=== PATIENT | female | born 1970 | race Caucasian/White ===

== ENCOUNTER 2020-10-12 12:24 | Observation (INO) | payer OTHER, SELFPAY ==
[2020-10-12 12:58] LABS: #Basophils 0.1 thou/uL (0.0-0.2); #Lymphocytes 1.3 thou/uL (1.20-3.40); #Monocytes 0.8 thou/uL (0.11-0.59); #Neutrophils 10.9 thou/uL (1.40-6.50); %Basophils 0.5 % (0.0-1.0); %Eosinophils 0.2 % (0.0-10.0); %Lymphocytes 10.2 % (21.0-51.0); %Monocytes 6.4 % (0.0-10.0); %Neutrophils 82.8 % (42.0-75.0); Hemoglobin 16.2 g/dL (12.0-16.0); Mean Corpuscular HGB CONC 33.9 g/dL (32.0-36.0); Mean Corpuscular Hemoglobin 33.6 pg (27.0-31.0); Mean Corpuscular Volume 99.2 fL (78.0-98.0); Mean Platelet Volume 7.2 fL (7.4-10.4); Platelet Count 324 thou/uL (130-400); RBC Distribution Width 11.5 % (11.5-14.5); Red Blood Cell (RBC) Count 4.82 mill/uL (4.20-5.40); White Blood Cell (WBC) Count 13.1 thou/uL (4.8-10.8)
[2020-10-12 13:12] LABS: ALT (SGPT) 19 U/L (8-55); AST (SGOT) 21 U/L (5-34); Albumin 4.5 g/dL (3.5-5.0); Alkaline Phosphatase 85 U/L (40-110); Anion Gap 17 mmol/L (10-20); BUN (Urea Nitrogen) 9 mg/dL (9.8-20.1); Bilirubin, Total 0.7 mg/dL (0.2-1.2); Calc. Creatinine Clearance 0 mL/min (70-130); Calcium 9.7 mg/dL (7.8-10.44); Carbon Dioxide 23 mmol/L (22-29); Chloride 101 mmol/L (98-107); Globulin 3.6 g/dL (2.4-3.5); Glucose 113 mg/dL (70-105); Lipase 5 U/L (8-78); Potassium 4.2 mmol/L (3.5-5.1); Protein, Total 8.1 g/dL (6.0-8.3); Sodium 137 mmol/L (136-145)
[2020-10-12] MEDS ORDERED: Morphine 4 MG/ML VIAL ONE ×2 (14:07→15:33)
[2020-10-12] MEDS ORDERED: Ondansetron PF 4 MG/2 ML Vial ONE ×2 (14:07→17:40)
[2020-10-12] MEDS ORDERED: Iopamidol-370 76% 500 ML 1 ML ONE (14:46)
[2020-10-12 15:16] LABS: BHCG - Serum Negative (NEGATIVE); Pregs Control Background? CLEAR/WHITE (CLR/WHITE); Pregs Control Bar Appear? YES (CONTROL BAR)
[2020-10-12] MEDS ORDERED: Ketorolac Tromethamine 30 MG/ML VIAL ONE (16:39)
[2020-10-12] MEDS ORDERED: Glycopyrrolate 0.2 MG/ML 5 ML SYRINGE SLOW IVP SCH (16:45)
[2020-10-12 16:58] LABS: Bilirubin Negative (Negative); Blood, Urine Negative (Negative); Clarity Clear (Clear); Glucose, Urine (Dipstick) Normal (Negative); Ketone, Urine 20 mg/dL (Negative); Leukocyte Negative Leu/uL (Negative); Nitrite Negative (Negative); Protein, Urine (Dipstick) Negative (Neg-Trace); Specific Gravity, Urine 1.015 (1.002-1.036); Urobilinogen Normal mg/dL (Less than 2); pH, Urine 6.5 (5.0-9.0)
[2020-10-12] MEDS ORDERED: Morphine 4 MG/ML VIAL SLOW IVP PRN (22:05)
[2020-10-12] MEDS ORDERED: Mag-Al 1200 mg/1200 mg/30 ML UDCUP PO PRN (22:06)
[2020-10-12] MEDS ORDERED: hydrALAZINE 20 MG/ML VIAL SLOW IVP PRN (22:06)
[2020-10-12] MEDS ORDERED: Promethazine HCl 25 MG/ML VIAL IM PRN (22:06)
[2020-10-12] MEDS ORDERED: Dextrose 5% in Water 1,000 ML IV PRN (22:06)
[2020-10-12] MEDS ORDERED: Calcium Carbonate 500 MG ChewTAB PO PRN (22:06)
[2020-10-12] MEDS ORDERED: Fentanyl 100 MCG/2 ML VIAL SLOW IVP PRN (22:06)
[2020-10-12] MEDS ORDERED: Ondansetron PF 4 MG/2 ML Vial IVP PRN ×2 (22:06→22:15)
[2020-10-12] MEDS ORDERED: Dextrose 50% Abboject 50 ML SYRINGE SLOW IVP PRN (22:06)
[2020-10-12] MEDS ORDERED: traMADol HCl 50 MG TAB PO PRN ×2 (22:06)
[2020-10-12] MEDS ORDERED: Ondansetron ODT 4 MG TAB SL PRN (22:15)
[2020-10-12] MEDS ORDERED: Famotidine/PF 20 mg/2ml Vial SLOW IVP SCH (22:15)
[2020-10-12] MEDS ORDERED: Enoxaparin Sodium 40 MG/0.4 ML SYRINGE SC SCH (22:15)
[2020-10-12] MEDS: metroNIDAZOLE 500 MG in Premix Bag 1 BAG IVPB SCH (22:33)
[2020-10-12] MEDS: Sodium Chloride 0.9% 1,000 ML IV SCH (22:36)
[2020-10-12] MEDS: D5 1/2 NS w/20 mEq KCL 1,000 ML IV SCH (22:36)
[2020-10-12] MEDS: Fentanyl 100 MCG/2 ML VIAL SLOW IVP PRN (22:38)
[2020-10-12] MEDS ORDERED: metroNIDAZOLE 500 MG in Premix Bag 1 BAG IVPB SCH (23:59)
[2020-10-13] MEDS: Fentanyl 100 MCG/2 ML VIAL SLOW IVP PRN (04:33)
[2020-10-13] MEDS: metroNIDAZOLE 500 MG in Premix Bag 1 BAG IVPB SCH ×2 (05:02→13:10)
[2020-10-13] MEDS: Sodium Chloride 0.9% 1,000 ML IV SCH (05:14)
[2020-10-13] MEDS: D5 1/2 NS w/20 mEq KCL 1,000 ML IV SCH ×3 (05:44→15:10)
[2020-10-13 06:32] LABS: #Eosinphils 0.2 thou/uL (0.0-0.7); #Lymphocytes 1.7 thou/uL (1.20-3.40); #Neutrophils 6.1 thou/uL (1.40-6.50); %Basophils 0.4 % (0.0-1.0); %Eosinophils 1.8 % (0.0-10.0); %Lymphocytes 18.7 % (21.0-51.0); %Monocytes 11.3 % (0.0-10.0); %Neutrophils 67.8 % (42.0-75.0); Hemoglobin 14.5 g/dL (12.0-16.0); Mean Corpuscular HGB CONC 33.9 g/dL (32.0-36.0); Mean Corpuscular Hemoglobin 34.2 pg (27.0-31.0); Mean Platelet Volume 7.5 fL (7.4-10.4); Platelet Count 258 thou/uL (130-400); RBC Distribution Width 11.9 % (11.5-14.5); Red Blood Cell (RBC) Count 4.23 mill/uL (4.20-5.40); White Blood Cell (WBC) Count 9.1 thou/uL (4.8-10.8)
[2020-10-13 06:58] LABS: ALT (SGPT) 15 U/L (8-55); AST (SGOT) 19 U/L (5-34); Albumin 3.7 g/dL (3.5-5.0); Alkaline Phosphatase 66 U/L (40-110); Anion Gap 13 mmol/L (10-20); BUN (Urea Nitrogen) 8 mg/dL (9.8-20.1); Bilirubin, Total 0.8 mg/dL (0.2-1.2); Calc. Creatinine Clearance 114 mL/min (70-130); Calcium 8.7 mg/dL (7.8-10.44); Carbon Dioxide 23 mmol/L (22-29); Chloride 107 mmol/L (98-107); Globulin 2.8 g/dL (2.4-3.5); Glucose 103 mg/dL (70-105); Lipase 16 U/L (8-78); Protein, Total 6.5 g/dL (6.0-8.3); Sodium 139 mmol/L (136-145)
[2020-10-13 08:44] LABS: SARS-CoV-2 PCR by NAA Not Detected (NotDetected)
[2020-10-13] MEDS ORDERED: Famotidine 20 MG TAB PO SCH (09:00)
[2020-10-13] MEDS ORDERED: Famotidine/PF 20 mg/2ml Vial SLOW IVP SCH (09:00)
[2020-10-13] MEDS ORDERED: Ketorolac Tromethamine 30 MG/ML VIAL IVP PRN (10:49)
[2020-10-13 17:47] VITALS: BP 153/86; TEMP 97.6
[2020-10-13] MEDS ORDERED: Enoxaparin Sodium 40 MG/0.4 ML SYRINGE SC SCH (21:00)
== END 2020-10-13 17:47 | disposition home or self-care (01) ==
LOC: ERS 12:24 → T4-B 18:37 → INTOOBSV 18:37
PROVIDERS: ADMIT Surgery; ATTEND Surgery
DX: K80.20 Calculus of gallbladder without cholecystitis without obstruction (principal); K57.30 Diverticulosis of large intestine without perforation or abscess without bleeding; D72.829 Elevated white blood cell count, unspecified; Z79.899 Other long term (current) drug therapy; Z88.0 Allergy status to penicillin; Z88.1 Allergy status to other antibiotic agents; Z88.5 Allergy status to narcotic agent; Z90.49 Acquired absence of other specified parts of digestive tract; Z20.822 Contact with and (suspected) exposure to COVID-19
CPT/HCPCS: 36415; 71045; 74177; 76705; 80053; 81003; 83690; 84484; 84703; 85025; 87635; 93005; 96374; 96375; 96376; G0378; J1650; J1885; J2270; J2405; J3010; J3480; Q9967; S0028; U0003; U0005

== ENCOUNTER 2020-12-08 09:59 | Inpatient (IN) | payer SELFPAY ==
[2020-12-08] MEDS ORDERED: Ketorolac Tromethamine 30 MG/ML VIAL ONE (10:23)
[2020-12-08 10:44] LABS: Hemoglobin 17.1 g/dL (12.0-16.0); Mean Corpuscular HGB CONC 34.1 g/dL (32.0-36.0); Platelet Count 258 thou/uL (130-400); Red Blood Cell (RBC) Count 4.88 mill/uL (4.20-5.40); White Blood Cell (WBC) Count 6.3 thou/uL (4.8-10.8)
[2020-12-08 10:54] LABS: ALT (SGPT) 873 U/L (8-55); AST (SGOT) 640 U/L (5-34); Albumin 4.8 g/dL (3.5-5.0); Alkaline Phosphatase 269 U/L (40-110); Anion Gap 14 mmol/L (10-20); BUN (Urea Nitrogen) 7 mg/dL (9.8-20.1); Bilirubin, Total 6.6 mg/dL (0.2-1.2); Calc. Creatinine Clearance 0 mL/min (70-130); Calcium 9.9 mg/dL (7.8-10.44); Carbon Dioxide 29 mmol/L (22-29); Chloride 101 mmol/L (98-107); Globulin 3.5 g/dL (2.4-3.5); Glucose 103 mg/dL (70-105); Lipase 8 U/L (8-78); Potassium 3.8 mmol/L (3.5-5.1); Protein, Total 8.3 g/dL (6.0-8.3); Sodium 140 mmol/L (136-145)
[2020-12-08 11:08] LABS: #Eosinphils 0.2 thou/uL (0.0-0.7); #Lymphocytes 1.2 thou/uL (1.20-3.40); #Monocytes 0.6 thou/uL (0.11-0.59); #Neutrophils 4.2 thou/uL (1.40-6.50); %Basophils 0.5 % (0.0-1.0); %Eosinophils 3.2 % (0.0-10.0); %Lymphocytes 19.5 % (21.0-51.0); %Monocytes 9.5 % (0.0-10.0); %Neutrophils 67.4 % (42.0-75.0)
[2020-12-08 11:09] LABS: Band 2 % (5-11); Eosinophils 4 % (0-10); Lymphocytes 22 % (21-51); MDiff Complete? YES; Monocytes 4 % (0-10); Neutrophil 67 % (42-75); Platelet Morphology Comment Appears Adequate; RBC Morphology Normal
[2020-12-08 11:11] LABS: Bilirubin Large (Negative); Blood, Urine Negative (Negative); Glucose, Urine (Dipstick) Negative (Negative); Ketone, Urine Trace mg/dL (Negative); Leukocyte Negative (Negative); Nitrite Positive (Negative); Protein, Urine (Dipstick) Negative (Neg-Trace); Specific Gravity, Urine 1.025 (1.005-1.030)
[2020-12-08 11:16] LABS: Clarity Clear (Clear)
[2020-12-08 11:18] LABS: Bacteria/HPF None Seen HPF (None Seen); Calcium Oxalate Crystals 4+ HPF (None Seen); RBC/HPF 0-3 HPF (0-3); Squamous Epithelial 0-3 HPF (0-3); WBC/HPF 0-3 HPF (0-3)
[2020-12-08] MEDS ORDERED: Metoclopramide HCl 10 MG/2 ML VIAL ONE (13:27)
[2020-12-08 13:40] LABS: SARS-CoV-2 NAA Rapid Test Not Detected (NotDetected)
[2020-12-08] MEDS ORDERED: Calcium Carbonate 500 MG ChewTAB PO PRN (19:36)
[2020-12-08] MEDS ORDERED: Morphine 4 MG/ML VIAL SLOW IVP PRN (19:36)
[2020-12-08] MEDS ORDERED: Ketorolac Tromethamine 30 MG/ML VIAL IVP PRN (19:36)
[2020-12-08] MEDS ORDERED: Dextrose 5% in Water 1,000 ML IV PRN (19:36)
[2020-12-08] MEDS ORDERED: Ondansetron PF 4 MG/2 ML Vial IVP PRN (19:36)
[2020-12-08] MEDS ORDERED: Promethazine HCl 25 MG/ML VIAL IM PRN (19:36)
[2020-12-08] MEDS ORDERED: Mag-Al 1200 mg/1200 mg/30 ML UDCUP PO PRN (19:36)
[2020-12-08] MEDS ORDERED: hydrALAZINE 20 MG/ML VIAL SLOW IVP PRN (19:36)
[2020-12-08] MEDS ORDERED: Morphine 2 MG/ML VIAL SLOW IVP PRN (19:36)
[2020-12-08] MEDS ORDERED: Dextrose 50% Abboject 50 ML SYRINGE SLOW IVP PRN (19:36)
[2020-12-08] MEDS: Famotidine/PF 20 mg/2ml Vial SLOW IVP SCH (20:39)
[2020-12-08] MEDS: D5 1/2 NS w/20 mEq KCL 1,000 ML IV SCH (20:39)
[2020-12-08] MEDS: Famotidine 20 MG TAB PO SCH (20:54)
[2020-12-09 00:25] VITALS: BMI 34.1
[2020-12-09] MEDS: D5 1/2 NS w/20 mEq KCL 1,000 ML IV SCH ×4 (04:24→20:44)
[2020-12-09 04:35] LABS: #Eosinphils 0.2 thou/uL (0.0-0.7); #Lymphocytes 1.3 thou/uL (1.20-3.40); #Monocytes 0.7 thou/uL (0.11-0.59); #Neutrophils 3.2 thou/uL (1.40-6.50); %Basophils 0.8 % (0.0-1.0); %Eosinophils 3.9 % (0.0-10.0); %Lymphocytes 23.6 % (21.0-51.0); %Monocytes 12.3 % (0.0-10.0); %Neutrophils 59.4 % (42.0-75.0); Hemoglobin 13.7 g/dL (12.0-16.0); Mean Corpuscular HGB CONC 32.4 g/dL (32.0-36.0); Mean Corpuscular Hemoglobin 33.4 pg (27.0-31.0); Platelet Count 219 thou/uL (130-400); Red Blood Cell (RBC) Count 4.09 mill/uL (4.20-5.40); White Blood Cell (WBC) Count 5.4 thou/uL (4.8-10.8)
[2020-12-09 05:01] LABS: ALT (SGPT) 496 U/L (8-55); AST (SGOT) 230 U/L (5-34); Albumin 3.6 g/dL (3.5-5.0); Alkaline Phosphatase 185 U/L (40-110); Anion Gap 8 mmol/L (10-20); BUN (Urea Nitrogen) 5 mg/dL (9.8-20.1); Bilirubin, Total 2.1 mg/dL (0.2-1.2); Calc. Creatinine Clearance 124 mL/min (70-130); Calcium 8.8 mg/dL (7.8-10.44); Carbon Dioxide 26 mmol/L (22-29); Chloride 109 mmol/L (98-107); Globulin 2.5 g/dL (2.4-3.5); Glucose 104 mg/dL (70-105); Lipase 11 U/L (8-78); Potassium 4.4 mmol/L (3.5-5.1); Protein, Total 6.1 g/dL (6.0-8.3); Sodium 139 mmol/L (136-145)
[2020-12-09] MEDS: Famotidine/PF 20 mg/2ml Vial SLOW IVP SCH ×2 (08:12→20:44)
[2020-12-09] MEDS: Famotidine 20 MG TAB PO SCH ×2 (08:19→20:41)
[2020-12-09] MEDS ORDERED: Indomethacin 50 MG SUPP ONE ×2 (09:22)
[2020-12-09] MEDS ORDERED: Iothalamate Meglumine 60% 50 ML VIAL FS ONE (09:22)
[2020-12-09] MEDS ORDERED: Fentanyl 100 MCG/2 ML VIAL ONE (09:42)
[2020-12-09] MEDS ORDERED: Ondansetron PF 4 MG/2 ML Vial ONE (09:48)
[2020-12-09] MEDS ORDERED: Ketorolac Tromethamine 30 MG/ML VIAL ONE (09:48)
[2020-12-09] MEDS ORDERED: Rocuronium Bromide 10 MG/ML (10ML VIAL) ONE (09:48)
[2020-12-09] MEDS ORDERED: Dexamethasone 20 MG/5 ML VIAL ONE (09:48)
[2020-12-09] MEDS ORDERED: Glycopyrrolate 0.2 MG/ML 5 ML SYRINGE ONE (09:48)
[2020-12-09] MEDS ORDERED: Lidocaine 1% PF 5 ML VIAL ONE (09:48)
[2020-12-09] MEDS ORDERED: PROPOFOL 200 MG/20 ML VIAL ONE (09:48)
[2020-12-09] MEDS ORDERED: Promethazine HCl 25 MG/ML VIAL IM PRN (10:54)
[2020-12-09] MEDS ORDERED: Meperidine HCl/PF 25 MG/ML VIAL SLOW IVP PRN (10:54)
[2020-12-09] MEDS ORDERED: Promethazine HCl 25 MG/ML VIAL SLOW IVP PRN (10:54)
[2020-12-09] MEDS ORDERED: Ondansetron HCl/PF 4 MG/2 ML Vial IVP PRN (10:54)
[2020-12-09] MEDS ORDERED: Simethicone Chewable 80 MG TAB PO PRN (17:03)
[2020-12-09] MEDS ORDERED: Ondansetron ODT 4 MG TAB PO PRN (19:39)
[2020-12-09] MEDS ORDERED: Acetaminophen 325 MG TAB PO PRN (19:39)
[2020-12-09] MEDS ORDERED: Zolpidem Tartrate 5 MG TAB PO PRN (19:40)
[2020-12-10] MEDS: D5 1/2 NS w/20 mEq KCL 1,000 ML IV SCH (05:05)
[2020-12-10 09:21] VITALS: BP 128/82; TEMP 98.1
[2020-12-10] MEDS: Famotidine/PF 20 mg/2ml Vial SLOW IVP SCH (11:21)
[2020-12-10] MEDS: Famotidine 20 MG TAB PO SCH (11:21)
== END 2020-12-10 10:40 | disposition home or self-care (01) | DRG 446 ==
LOC: ERS 09:59 → ONC 11:59 → ERHOLD 13:23 → ONC 19:34
PROVIDERS: ADMIT Surgery; ATTEND Surgery
PROC: 0FC98ZZ Extirpation of Matter from Common Bile Duct, Via Natural or Artificial Opening Endoscopic (ICD-10-PCS; principal; 2020-12-09)
DX: K80.50 Calculus of bile duct without cholangitis or cholecystitis without obstruction (principal); Z20.822 Contact with and (suspected) exposure to COVID-19; K82.8 Other specified diseases of gallbladder; Z90.49 Acquired absence of other specified parts of digestive tract; Z88.0 Allergy status to penicillin; Z88.1 Allergy status to other antibiotic agents; Z88.5 Allergy status to narcotic agent; Z79.899 Other long term (current) drug therapy
CPT/HCPCS: 0240U; 36415; 74330; 76705; 80053; 81003; 81015; 83605; 83690; 85025; 87086; 96365; 96375; J1100; J1885; J2405; J2550; J2704; J2765; J3010; J3480; Q9961; S0028

== ENCOUNTER 2020-12-19 08:37 | Inpatient (IN) | payer SELFPAY ==
[2020-12-19] MEDS ORDERED: Ketorolac Tromethamine 30 MG/ML VIAL ONE (09:28)
[2020-12-19] MEDS ORDERED: Ondansetron ODT 4 MG TAB ONE (09:32)
[2020-12-19 10:02] LABS: RBC Distribution Width 11.7 % (11.5-14.5)
[2020-12-19 10:15] LABS: #Lymphocytes 1.3 thou/uL (1.20-3.40); #Monocytes 1.1 thou/uL (0.11-0.59); #Neutrophils 12.6 thou/uL (1.40-6.50); %Basophils 0.1 % (0.0-1.0); %Eosinophils 0.1 % (0.0-10.0); %Lymphocytes 8.5 % (21.0-51.0); %Monocytes 7.1 % (0.0-10.0); %Neutrophils 84.2 % (42.0-75.0); Hemoglobin 15.3 g/dL (12.0-16.0); Mean Corpuscular HGB CONC 34.3 g/dL (32.0-36.0); Mean Corpuscular Hemoglobin 34.3 pg (27.0-31.0); Mean Platelet Volume 7.8 fL (7.4-10.4); Platelet Count 338 thou/uL (130-400); Red Blood Cell (RBC) Count 4.45 mill/uL (4.20-5.40)
[2020-12-19] MEDS ORDERED: Fentanyl 100 MCG/2 ML VIAL ONE ×3 (10:19→13:52)
[2020-12-19] MEDS ORDERED: Ondansetron PF 4 MG/2 ML Vial ONE (10:20)
[2020-12-19 10:22] LABS: ALT (SGPT) 69 U/L (8-55); AST (SGOT) 22 U/L (5-34); Albumin 4.7 g/dL (3.5-5.0); Alkaline Phosphatase 115 U/L (40-110); Anion Gap 17 mmol/L (10-20); BUN (Urea Nitrogen) 9 mg/dL (9.8-20.1); Bilirubin, Total 0.9 mg/dL (0.2-1.2); Calc. Creatinine Clearance 0 mL/min (70-130); Calcium 10.3 mg/dL (7.8-10.44); Carbon Dioxide 24 mmol/L (22-29); Chloride 104 mmol/L (98-107); Globulin 3.6 g/dL (2.4-3.5); Glucose 126 mg/dL (70-105); Lipase 7 U/L (8-78); Potassium 3.8 mmol/L (3.5-5.1); Protein, Total 8.3 g/dL (6.0-8.3); Sodium 141 mmol/L (136-145)
[2020-12-19] MEDS ORDERED: Iopamidol-370 76% 500 ML 1 ML ONE (11:09)
[2020-12-19 12:02] LABS: Troponin I Less than 0.010 ng/mL (< 0.028)
[2020-12-19 12:09] LABS: Bacteria/HPF None Seen HPF (None Seen); Bilirubin Negative (Negative); Blood, Urine Negative (Negative); Clarity Extra Turbid (Clear); Glucose, Urine (Dipstick) Normal (Negative); Ketone, Urine 60 mg/dL (Negative); Leukocyte Negative Leu/uL (Negative); Nitrite Negative (Negative); Protein, Urine (Dipstick) 70 mg/dL (Neg-Trace); RBC/HPF None Seen HPF (0-3); Specific Gravity, Urine 1.035 (1.002-1.036); Squamous Epithelial None Seen HPF (0-3); Urobilinogen Normal mg/dL (Less than 2); WBC/HPF None Seen HPF (0-3); pH, Urine 5.5 (5.0-9.0)
[2020-12-19] MEDS ORDERED: metroNIDAZOLE 500 MG/100 ML BAG ONE (13:38)
[2020-12-19] MEDS ORDERED: HYDROmorphone 0.5 MG/0.5 ML SYRINGE ONE (14:36)
[2020-12-19] MEDS ORDERED: diphenhydrAMINE 50 MG/ML VIAL ONE (14:36)
[2020-12-19 15:42] VITALS: BMI 32.5
[2020-12-19] MEDS ORDERED: Dextrose 5% in Water 1,000 ML IV PRN (16:29)
[2020-12-19] MEDS ORDERED: Calcium Carbonate 500 MG ChewTAB PO PRN (16:29)
[2020-12-19] MEDS ORDERED: Dextrose 50% Abboject 50 ML SYRINGE SLOW IVP PRN (16:29)
[2020-12-19] MEDS ORDERED: Mag-Al 1200 mg/1200 mg/30 ML UDCUP PO PRN (16:29)
[2020-12-19] MEDS ORDERED: hydrALAZINE 20 MG/ML VIAL SLOW IVP PRN (16:29)
[2020-12-19] MEDS ORDERED: Morphine 2 MG/ML VIAL SLOW IVP PRN (16:29)
[2020-12-19] MEDS: Ketorolac Tromethamine 30 MG/ML VIAL IVP SCH ×2 (17:01→22:42)
[2020-12-19] MEDS: Morphine 4 MG/ML VIAL SLOW IVP PRN ×2 (17:02→20:18)
[2020-12-19] MEDS: D5 1/2 NS w/20 mEq KCL 1,000 ML IV SCH (17:02)
[2020-12-19] MEDS: metroNIDAZOLE 500 MG in Premix Bag 1 BAG IVPB SCH (20:18)
[2020-12-19] MEDS: Famotidine/PF 20 mg/2ml Vial SLOW IVP SCH (20:18)
[2020-12-19] MEDS: Famotidine 20 MG TAB PO SCH (22:33)
[2020-12-19] MEDS: Promethazine HCl 25 MG/ML VIAL IM PRN (22:43)
[2020-12-20] MEDS: D5 1/2 NS w/20 mEq KCL 1,000 ML IV SCH ×4 (02:35→23:35)
[2020-12-20] MEDS: Ketorolac Tromethamine 30 MG/ML VIAL IVP SCH ×4 (05:40→22:05)
[2020-12-20] MEDS: Promethazine HCl 25 MG/ML VIAL IM PRN ×2 (05:40→20:58)
[2020-12-20] MEDS: metroNIDAZOLE 500 MG in Premix Bag 1 BAG IVPB SCH ×3 (05:41→20:59)
[2020-12-20 05:52] LABS: #Eosinphils 0.1 thou/uL (0.0-0.7); #Lymphocytes 1.3 thou/uL (1.20-3.40); #Monocytes 1.7 thou/uL (0.11-0.59); #Neutrophils 12.1 thou/uL (1.40-6.50); %Basophils 0.3 % (0.0-1.0); %Eosinophils 0.3 % (0.0-10.0); %Lymphocytes 8.3 % (21.0-51.0); %Monocytes 11.4 % (0.0-10.0); %Neutrophils 79.7 % (42.0-75.0); Hemoglobin 14.6 g/dL (12.0-16.0); Mean Corpuscular HGB CONC 33.2 g/dL (32.0-36.0); Mean Platelet Volume 7.7 fL (7.4-10.4); Platelet Count 282 thou/uL (130-400); RBC Distribution Width 11.6 % (11.5-14.5); Red Blood Cell (RBC) Count 4.28 mill/uL (4.20-5.40); White Blood Cell (WBC) Count 15.2 thou/uL (4.8-10.8)
[2020-12-20 06:13] LABS: ALT (SGPT) 48 U/L (8-55); AST (SGOT) 15 U/L (5-34); Alkaline Phosphatase 97 U/L (40-110); Anion Gap 13 mmol/L (10-20); BUN (Urea Nitrogen) 5 mg/dL (9.8-20.1); Calc. Creatinine Clearance 115 mL/min (70-130); Calcium 8.9 mg/dL (7.8-10.44); Carbon Dioxide 22 mmol/L (22-29); Chloride 104 mmol/L (98-107); Globulin 3.1 g/dL (2.4-3.5); Glucose 131 mg/dL (70-105); Lipase 8 U/L (8-78); Potassium 3.9 mmol/L (3.5-5.1); Protein, Total 7.1 g/dL (6.0-8.3); Sodium 135 mmol/L (136-145)
[2020-12-20] MEDS: Ondansetron PF 4 MG/2 ML Vial IVP PRN (11:53)
[2020-12-20] MEDS: Famotidine 20 MG TAB PO SCH ×2 (11:56→20:59)
[2020-12-20] MEDS: Famotidine/PF 20 mg/2ml Vial SLOW IVP SCH ×2 (11:56→20:59)
[2020-12-20] MEDS: Morphine 4 MG/ML VIAL SLOW IVP PRN ×2 (20:58→23:58)
[2020-12-21] MEDS: Ketorolac Tromethamine 30 MG/ML VIAL IVP SCH (05:06)
[2020-12-21] MEDS: metroNIDAZOLE 500 MG in Premix Bag 1 BAG IVPB SCH ×3 (05:07→21:19)
[2020-12-21 06:32] LABS: #Eosinphils 0.2 thou/uL (0.0-0.7); #Lymphocytes 1.3 thou/uL (1.20-3.40); #Monocytes 1.5 thou/uL (0.11-0.59); %Basophils 0.3 % (0.0-1.0); %Eosinophils 1.2 % (0.0-10.0); %Lymphocytes 10.2 % (21.0-51.0); %Monocytes 11.3 % (0.0-10.0); Hemoglobin 13.6 g/dL (12.0-16.0); Mean Corpuscular HGB CONC 33.6 g/dL (32.0-36.0); Mean Corpuscular Hemoglobin 34.4 pg (27.0-31.0); Mean Platelet Volume 7.7 fL (7.4-10.4); Platelet Count 250 thou/uL (130-400); RBC Distribution Width 11.6 % (11.5-14.5); Red Blood Cell (RBC) Count 3.97 mill/uL (4.20-5.40)
[2020-12-21 06:53] LABS: ALT (SGPT) 37 U/L (8-55); AST (SGOT) 14 U/L (5-34); Albumin 3.8 g/dL (3.5-5.0); Alkaline Phosphatase 88 U/L (40-110); Bilirubin, Direct 0.6 mg/dL (0.1-0.3); Bilirubin, Total 1.1 mg/dL (0.2-1.2); Protein, Total 6.8 g/dL (6.0-8.3)
[2020-12-21] MEDS: Famotidine/PF 20 mg/2ml Vial SLOW IVP SCH ×2 (08:22→21:19)
[2020-12-21] MEDS: D5 1/2 NS w/20 mEq KCL 1,000 ML IV SCH ×2 (08:24→17:11)
[2020-12-21] MEDS: Famotidine 20 MG TAB PO SCH ×2 (08:25→21:20)
[2020-12-21] MEDS ORDERED: Fentanyl 100 MCG/2 ML VIAL SLOW IVP PRN (08:36)
[2020-12-21] MEDS: Fentanyl 100 MCG/2 ML VIAL SLOW IVP PRN (09:55)
[2020-12-21] MEDS: Ketorolac Tromethamine 30 MG/ML VIAL IVP PRN ×2 (12:25→18:34)
[2020-12-21] MEDS: Ondansetron PF 4 MG/2 ML Vial IVP PRN (17:07)
[2020-12-21 20:05] LABS: SARS-CoV-2 NAA Rapid Test Not Detected (NotDetected)
[2020-12-22] MEDS: Ketorolac Tromethamine 30 MG/ML VIAL IVP PRN ×3 (00:29→19:15)
[2020-12-22] MEDS: D5 1/2 NS w/20 mEq KCL 1,000 ML IV SCH ×3 (03:34→22:44)
[2020-12-22] MEDS: metroNIDAZOLE 500 MG in Premix Bag 1 BAG IVPB SCH ×4 (05:16→20:21)
[2020-12-22] MEDS: Famotidine/PF 20 mg/2ml Vial SLOW IVP SCH ×2 (08:54→20:21)
[2020-12-22] MEDS: Famotidine 20 MG TAB PO SCH ×2 (08:54→22:45)
[2020-12-22] MEDS ORDERED: Indocyanine Green 25 MG/10 ML VIAL ONE (10:25)
[2020-12-22] MEDS ORDERED: Ketorolac Tromethamine 30 MG/ML VIAL ONE (12:10)
[2020-12-22] MEDS ORDERED: Promethazine HCl 25 MG/ML VIAL IVPB PRN (13:57)
[2020-12-22] MEDS ORDERED: Ondansetron HCl/PF 4 MG/2 ML Vial IVP PRN (13:57)
[2020-12-22] MEDS ORDERED: Promethazine HCl 25 MG/ML VIAL IM PRN ×2 (13:57→17:12)
[2020-12-22] MEDS ORDERED: Lidocaine 1% w/Epinephrine 1:100K 20 ML VIAL ONE (14:06)
[2020-12-22] MEDS ORDERED: Bupivacaine 0.25% HCL 30 ML VIAL ONE (14:06)
[2020-12-22] MEDS ORDERED: SUGAMMADEX SODIUM 200 MG/2 ML VIAL ONE (14:13)
[2020-12-22] MEDS ORDERED: Fentanyl 100 MCG/2 ML VIAL ONE ×2 (14:13→16:32)
[2020-12-22] MEDS ORDERED: PROPOFOL 200 MG/20 ML VIAL ONE (14:28)
[2020-12-22] MEDS ORDERED: Dexamethasone 20 MG/5 ML VIAL ONE (14:28)
[2020-12-22] MEDS ORDERED: Ondansetron PF 4 MG/2 ML Vial ONE (14:28)
[2020-12-22] MEDS ORDERED: Lidocaine 1% PF 5 ML VIAL ONE (14:28)
[2020-12-22] MEDS ORDERED: Rocuronium Bromide 10 MG/ML (10ML VIAL) ONE (14:28)
[2020-12-22] MEDS ORDERED: Midazolam HCl 2 mg/2 ml Vial ONE (14:30)
[2020-12-22] MEDS ORDERED: metroNIDAZOLE 500 MG/100 ML BAG ONE (16:57)
[2020-12-22] MEDS ORDERED: Naloxone HCl 0.4 mg/ml Vial IV PRN (17:12)
[2020-12-22] MEDS ORDERED: diphenhydrAMINE 25 MG CAP PO PRN (17:12)
[2020-12-22] MEDS ORDERED: diphenhydrAMINE 50 MG/ML VIAL IVP PRN (17:12)
[2020-12-22] MEDS ORDERED: Ondansetron PF 4 MG/2 ML Vial IVP PRN (17:12)
[2020-12-22] MEDS ORDERED: diphenhydrAMINE 50 MG/ML VIAL IM PRN (17:12)
[2020-12-22] MEDS ORDERED: fentaNYL Citrate/PF 2,000 MCG in Sodium Chloride 0.9% 60 ML IV PRN (17:12)
[2020-12-22] MEDS ORDERED: Communication Order-Pharmacy FS SCH (17:15)
[2020-12-23] MEDS: Zolpidem Tartrate 5 MG TAB PO PRN ×2 (00:46→21:23)
[2020-12-23] MEDS: Ketorolac Tromethamine 30 MG/ML VIAL IVP PRN ×2 (01:28→08:02)
[2020-12-23] MEDS: metroNIDAZOLE 500 MG in Premix Bag 1 BAG IVPB SCH ×3 (05:15→17:08)
[2020-12-23] MEDS: D5 1/2 NS w/20 mEq KCL 1,000 ML IV SCH ×2 (06:02→08:02)
[2020-12-23 06:11] LABS: Hemoglobin 14.8 g/dL (12.0-16.0); Mean Corpuscular HGB CONC 32.9 g/dL (32.0-36.0); Mean Corpuscular Hemoglobin 33.6 pg (27.0-31.0); Mean Platelet Volume 7.6 fL (7.4-10.4); Platelet Count 363 thou/uL (130-400); RBC Distribution Width 11.2 % (11.5-14.5); Red Blood Cell (RBC) Count 4.39 mill/uL (4.20-5.40)
[2020-12-23 06:18] LABS: ALT (SGPT) 36 U/L (8-55); AST (SGOT) 26 U/L (5-34); Alkaline Phosphatase 92 U/L (40-110); Anion Gap 11 mmol/L (10-20); BUN (Urea Nitrogen) 5 mg/dL (9.8-20.1); Bilirubin, Total 0.7 mg/dL (0.2-1.2); Calc. Creatinine Clearance 115 mL/min (70-130); Calcium 9.5 mg/dL (7.8-10.44); Carbon Dioxide 23 mmol/L (22-29); Chloride 106 mmol/L (98-107); Globulin 3.6 g/dL (2.4-3.5); Glucose 152 mg/dL (70-105); Potassium 4.2 mmol/L (3.5-5.1); Protein, Total 7.6 g/dL (6.0-8.3); Sodium 136 mmol/L (136-145)
[2020-12-23 06:33] LABS: Band 17 % (5-11); Lymphocytes 11 % (21-51); MDiff Complete? YES; Monocytes 3 % (0-10); Neutrophil 69 % (42-75); White Blood Cell (WBC) Count 21.8 thou/uL (4.8-10.8)
[2020-12-23] MEDS: Famotidine/PF 20 mg/2ml Vial SLOW IVP SCH ×2 (08:02→21:18)
[2020-12-23] MEDS: Famotidine 20 MG TAB PO SCH ×2 (08:38→21:30)
[2020-12-23] MEDS ORDERED: D5 1/2 NS w/20 mEq KCL 1,000 ML IV SCH (12:28)
[2020-12-23] MEDS ORDERED: HYDROcodone/Acetaminophen 7.5/325 mg Tablet PO PRN ×2 (17:08→17:10)
[2020-12-23] MEDS ORDERED: metroNIDAZOLE 500 MG TAB PO SCH (17:15)
[2020-12-23] MEDS: metroNIDAZOLE 500 MG TAB PO SCH (21:30)
[2020-12-24] MEDS ORDERED: traMADol HCl 50 MG TAB PO PRN (03:51)
[2020-12-24] MEDS: traMADol HCl 50 MG TAB PO PRN ×2 (03:56→09:46)
[2020-12-24] MEDS: Famotidine/PF 20 mg/2ml Vial SLOW IVP SCH ×2 (09:14→20:31)
[2020-12-24] MEDS: Famotidine 20 MG TAB PO SCH ×2 (09:14→20:30)
[2020-12-24] MEDS: metroNIDAZOLE 500 MG TAB PO SCH ×3 (09:15→20:30)
[2020-12-24] MEDS: Fentanyl 100 MCG/2 ML VIAL SLOW IVP PRN (09:31)
[2020-12-24] MEDS ORDERED: Fentanyl 100 MCG/2 ML VIAL IM PRN ×2 (09:32)
[2020-12-24] MEDS ORDERED: Ketorolac Tromethamine 30 MG/ML VIAL IM PRN (09:33)
[2020-12-24] MEDS: Ondansetron PF 4 MG/2 ML Vial IVP PRN (09:49)
[2020-12-24] MEDS: Acetaminophen/Codeine 30-300mg Tablet PO PRN ×2 (15:19→21:45)
[2020-12-24] MEDS ORDERED: Fentanyl 100 MCG/2 ML VIAL SLOW IVP PRN ×2 (15:32)
[2020-12-24] MEDS: Ketorolac Tromethamine 30 MG/ML VIAL IM/IV PRN (19:02)
[2020-12-25] MEDS: Zolpidem Tartrate 5 MG TAB PO PRN (00:34)
[2020-12-25] MEDS: Acetaminophen/Codeine 30-300mg Tablet PO PRN ×2 (04:21→08:41)
[2020-12-25 05:08] LABS: #Basophils 0.1 thou/uL (0.0-0.2); #Eosinphils 0.4 thou/uL (0.0-0.7); #Lymphocytes 1.9 thou/uL (1.20-3.40); #Monocytes 1.8 thou/uL (0.11-0.59); #Neutrophils 11.7 thou/uL (1.40-6.50); %Basophils 0.3 % (0.0-1.0); %Eosinophils 2.5 % (0.0-10.0); %Lymphocytes 12.1 % (21.0-51.0); %Monocytes 11.3 % (0.0-10.0); %Neutrophils 73.8 % (42.0-75.0); Hemoglobin 13.5 g/dL (12.0-16.0); Mean Corpuscular HGB CONC 33.5 g/dL (32.0-36.0); Mean Platelet Volume 7.5 fL (7.4-10.4); Platelet Count 287 thou/uL (130-400); RBC Distribution Width 11.6 % (11.5-14.5); Red Blood Cell (RBC) Count 3.98 mill/uL (4.20-5.40); White Blood Cell (WBC) Count 15.9 thou/uL (4.8-10.8)
[2020-12-25 05:27] LABS: Anion Gap 14 mmol/L (10-20); BUN (Urea Nitrogen) 4 mg/dL (9.8-20.1); Calc. Creatinine Clearance 127 mL/min (70-130); Calcium 8.7 mg/dL (7.8-10.44); Carbon Dioxide 23 mmol/L (22-29); Chloride 101 mmol/L (98-107); Glucose 98 mg/dL (70-105); Potassium 3.6 mmol/L (3.5-5.1); Sodium 134 mmol/L (136-145)
[2020-12-25] MEDS: Famotidine/PF 20 mg/2ml Vial SLOW IVP SCH (07:30)
[2020-12-25] MEDS: Famotidine 20 MG TAB PO SCH (07:33)
[2020-12-25] MEDS: metroNIDAZOLE 500 MG TAB PO SCH (07:33)
[2020-12-25] MEDS: Ketorolac Tromethamine 30 MG/ML VIAL IM/IV PRN (07:34)
[2020-12-25] MEDS: traMADol HCl 50 MG TAB PO PRN (10:39)
[2020-12-25 10:57] VITALS: BP 115/80; TEMP 98.8
== END 2020-12-25 11:28 | disposition home or self-care (01) | DRG 410 ==
LOC: ERS 08:37 → SURG B 13:52
PROVIDERS: ADMIT Surgery; ATTEND Surgery
PROC: 0FP Hepatobiliary System and Pancreas, Removal (ICD-10-PCS; principal; 2020-12-19)
PROC: 0FB Hepatobiliary System and Pancreas, Excision (ICD-10-PCS; 2020-12-19)
PROC: 8E0W4CZ Robotic Assisted Procedure of Trunk Region, Percutaneous Endoscopic Approach (ICD-10-PCS; 2020-12-19)
DX: K91.5 Postcholecystectomy syndrome (principal); K80.20 Calculus of gallbladder without cholecystitis without obstruction; Z20.822 Contact with and (suspected) exposure to COVID-19; Z90.49 Acquired absence of other specified parts of digestive tract; Z88.1 Allergy status to other antibiotic agents; Z88.5 Allergy status to narcotic agent; Z88.0 Allergy status to penicillin; Z80.42 Family history of malignant neoplasm of prostate
CPT/HCPCS: 36415; 74177; 80048; 80053; 80076; 81001; 83690; 84484; 85025; 93005; 96365; 96375; 96376; J1100; J1170; J1200; J1885; J1956; J2250; J2270; J2405; J2550; J2704; J3010; J3480; Q0162; Q0163; Q9967; S0020; S0028; U0002; U0005

== ENCOUNTER 2022-04-12 08:59 | Emergency (ER) | payer SELFPAY ==
[2022-04-12 09:50] LABS: #Eosinphils 0.1 thou/uL (0.0-0.7); #Lymphocytes 1.3 thou/uL (1.20-3.40); #Monocytes 1.1 thou/uL (0.11-0.59); #Neutrophils 11.8 thou/uL (1.40-6.50); %Basophils 0.1 % (0.0-1.0); %Lymphocytes 9.2 % (21.0-51.0); %Monocytes 7.9 % (0.0-10.0); %Neutrophils 81.8 % (42.0-75.0); Hemoglobin 14.5 g/dL (12.0-16.0); Mean Corpuscular HGB CONC 30.4 g/dL (32.0-36.0); Mean Corpuscular Hemoglobin 30.4 pg (27.0-31.0); Mean Corpuscular Volume 99.9 fL (78.0-98.0); Mean Platelet Volume 7.1 fL (7.4-10.4); Platelet Count 388 thou/uL (130-400); RBC Distribution Width 10.9 % (11.5-14.5); Red Blood Cell (RBC) Count 4.75 mill/uL (4.20-5.40); White Blood Cell (WBC) Count 14.4 thou/uL (4.8-10.8)
[2022-04-12 09:53] LABS: BHCG - Serum Negative (NEGATIVE); Pregs Control Background? CLEAR/WHITE (CLR/WHITE); Pregs Control Bar Appear? YES (CONTROL BAR)
[2022-04-12 10:00] LABS: ALT (SGPT) 35 U/L (8-55); AST (SGOT) 30 U/L (5-34); Albumin 4.3 g/dL (3.5-5.0); Alkaline Phosphatase 91 U/L (40-110); Anion Gap 19 mmol/L (10-20); BUN (Urea Nitrogen) 7 mg/dL (9.8-20.1); Bilirubin, Total 0.6 mg/dL (0.2-1.2); Calc. Creatinine Clearance 0 mL/min (70-130); Calcium 9.4 mg/dL (7.8-10.44); Carbon Dioxide 20 mmol/L (22-29); Chloride 102 mmol/L (98-107); Estimated GFR 89; Globulin 3.6 g/dL (2.4-3.5); Glucose 108 mg/dL (70-105); Lipase 6 U/L (8-78); Potassium 4.3 mmol/L (3.5-5.1); Protein, Total 7.9 g/dL (6.0-8.3); Sodium 137 mmol/L (136-145)
[2022-04-12 11:44] LABS: Bilirubin Negative (Negative); Blood, Urine Negative (Negative); Clarity Clear (Clear); Glucose, Urine (Dipstick) Normal (Negative); Ketone, Urine 60 mg/dL (Negative); Leukocyte Negative Leu/uL (Negative); Nitrite Negative (Negative); Protein, Urine (Dipstick) Negative (Neg-Trace); Specific Gravity, Urine 1.012 (1.002-1.036); Urobilinogen Normal mg/dL (Less than 2); pH, Urine 6.5 (5.0-9.0)
[2022-04-12] MEDS ORDERED: Cefepime 2 GM VIAL ONE (12:32)
[2022-04-12] MEDS ORDERED: metroNIDAZOLE 500 MG in Premix Bag 1 BAG IVPB SCH (13:00)
[2022-04-12] MEDS ORDERED: Pantoprazole 40 MG VIAL ONE (13:22)
[2022-04-12] MEDS ORDERED: Iopamidol-370 76% 500 ML 1 ML ONE (13:50)
== END 2022-04-12 13:25 | disposition home or self-care (01) ==
LOC: ERS 08:59
DX: R10.31 Right lower quadrant pain (principal); R10.11 Right upper quadrant pain; R10.13 Epigastric pain
CPT/HCPCS: 36415; 74177; 80053; 81003; 83605; 83690; 84484; 84703; 85025; 87040; 96365; 96375; C9113; J0692; Q9967